=== PATIENT | male | born 1950 | race Caucasian/White ===

== ENCOUNTER → 2016-12-24 | Outpatient (REF) | payer MEDICARE, BC ==
[2016-12-24 21:08] LABS: BASO % 0.2 % (0.0-1.0); EOS % 0.2 % (0.0-3.0); LARGE UNSTAINED CELL # 0.2 K/mm3 (0.0-0.4); LARGE UNSTAINED CELL % 1.4 % (0.0-4.0); LYMPH # 1.9 K/mm3 (1.5-4.5); LYMPH % 12.9 % (24.0-44.0); MEAN CORPUSCULAR HEMOGLOBIN 30.7 pg (27.0-33.0); MEAN CORPUSCULAR HGB CONC 35.2 g/dl (32.0-36.5); MEAN CORPUSCULAR VOLUME 87.2 fl (80.0-96.0); MONO # 0.9 K/mm3 (0.0-0.8); MONO % 6.2 % (0.0-5.0); NEUTROPHILS # 11.6 K/mm3 (1.8-7.7); PLATELET COUNT, AUTOMATED 347 k/mm3 (150-450); RED CELL DISTRIBUTION WIDTH 12.7 % (11.5-14.5); WHITE BLOOD COUNT 14.7 K/mm3 (4.0-10.0)
[2016-12-24 21:19] LABS: ALBUMIN 4.3 GM/DL (3.2-5.2); ALBUMIN/GLOBULIN RATIO 1.3 (1.00-1.93); BILIRUBIN,TOTAL 1.6 MG/DL (0.2-1.0); CALCIUM LEVEL 9.2 MG/DL (8.8-10.2); CREATININE FOR GFR 1.35 MG/DL (0.70-1.30); GLOMERULAR FILTRATION RATE 56.5 (>49); POTASSIUM SERUM 4.2 MEQ/L (3.5-5.1); TOTAL PROTEIN 7.6 GM/DL (6.4-8.2)
== END ==
LOC: M SFHCLERA 16:32
PROVIDERS: ATTEND Physician Assistant
DX: R30.0 Dysuria (principal); R39.198 Other difficulties with micturition
CPT/HCPCS: 80053; 85025; 87086; G0103

== ENCOUNTER → 2017-01-26 | Outpatient (REF) | payer MEDICARE ==
[2017-01-26 11:55] LABS: MEAN CORPUSCULAR HEMOGLOBIN 30.3 pg (27.0-33.0); MEAN CORPUSCULAR HGB CONC 35.4 g/dl (32.0-36.5); MEAN CORPUSCULAR VOLUME 85.6 fl (80.0-96.0); RED CELL DISTRIBUTION WIDTH 12.9 % (11.5-14.5); WHITE BLOOD COUNT 4.7 K/mm3 (4.0-10.0)
[2017-01-26 12:09] LABS: ALBUMIN 3.7 GM/DL (3.2-5.2); ALBUMIN/GLOBULIN RATIO 1.23 (1.00-1.93); ALKALINE PHOSPHATASE 68 U/L (45-117); ALT/SGPT 52 U/L (12-78); ANION GAP 6 MEQ/L (8-16); AST/SGOT 31 U/L (15-37); BILIRUBIN,TOTAL 0.6 MG/DL (0.2-1.0); BLOOD UREA NITROGEN 8 MG/DL (7-18); CALCIUM LEVEL 8.9 MG/DL (8.8-10.2); CARBON DIOXIDE LEVEL 32 MEQ/L (21-32); CHLORIDE LEVEL 104 MEQ/L (98-107); CREATININE FOR GFR 0.78 MG/DL (0.70-1.30); GLOMERULAR FILTRATION RATE > 60.0 (>49); GLUCOSE, FASTING 106 MG/DL (80-110); POTASSIUM SERUM 4.2 MEQ/L (3.5-5.1); SODIUM LEVEL 142 MEQ/L (136-145); TOTAL PROTEIN 6.7 GM/DL (6.4-8.2)
[2017-01-27 14:19] LABS: PSA % FREE 14.8 % (.); PSA FREE 0.93 ng/mL; PSA TOTAL 6.3 ng/mL (0.0-4.0)
== END ==
LOC: M SFHCLERA 08:46
PROVIDERS: ATTEND Family Medicine
DX: R97.20 Elevated prostate specific antigen [PSA] (principal); N17.9 Acute kidney failure, unspecified

== ENCOUNTER → 2017-02-22 | Outpatient (REF) | payer MEDICARE ==
[2017-02-23 14:15] LABS: PSA % FREE 16.1 % (.); PSA FREE 0.82 ng/mL; PSA TOTAL 5.1 ng/mL (0.0-4.0)
== END ==
LOC: M SFHCLERA 08:05
PROVIDERS: ATTEND Family Medicine
DX: R97.20 Elevated prostate specific antigen [PSA] (principal)

== ENCOUNTER → 2017-03-08 | Outpatient (REF) | payer MEDICARE | LOC: M SMT 16:52 | PROVIDERS: ATTEND Nurse Practitioner Family | DX: R97.20 Elevated prostate specific antigen [PSA] (principal) ==

== ENCOUNTER → 2017-03-10 | Outpatient (REF) | payer MEDICARE | LOC: M SMT 12:50 | PROVIDERS: ATTEND Nurse Practitioner Family | DX: R97.20 Elevated prostate specific antigen [PSA] (principal); Z79.899 Other long term (current) drug therapy ==

== ENCOUNTER 2017-05-19 11:47 | Outpatient (CLI) | payer MEDICARE ==
[~2017-05-19] VITALS: Ht 172.7 cm; Wt 90.7 kg
[~2017-05-19 11:47] MED LIST: AMLO10TA2 PO; ASPI1TAB PO; ATOR1TAB19 PO; FLOM5CAP PO; LISI40TAB PO; OMEP20CA3 PO; POTA99TA PO; SAM-400T3 PO; SILD20TA11 PO; VITA200015 PO; VITATAB11 PO
[2017-05-19] MEDS ORDERED: NS 1,000 ML IV SCH (13:30)
[2017-05-19] MEDS ORDERED: PROPOFOL 200 MG/20 ML VIAL As Ordered ONE ×2 (15:04→15:14)
--- NOTE | 2017-05-19 15:26 | ROOR ---
Patient Name: Amish Park Procedure Date: 05/19/2017 2:00 PM Date of : 1950 Age: 66 Room: [facility] Gender: Male Note Status: Finalized Procedure: Colonoscopy Indications: Screening for colorectal malignant neoplasm Providers: Avila LOMELI MD Referring MD: Davis Pedroza MD Requesting Provider: Medicines: Monitored Anesthesia Care Complications: No immediate complications. Procedure: Pre-Anesthesia Assessment: - The heart rate, respiratory rate, oxygen saturations, blood pressure, adequacy of pulmonary ventilation, and response to care were monitored throughout the procedure. The Colonoscope was introduced through the anus and advanced to the cecum, identified by appendiceal orifice and ileocecal valve. The colonoscopy was performed without difficulty. The patient tolerated the procedure well. The quality of the bowel preparation was good. Findings: The perianal and digital rectal examinations were normal. Two sessile polyps were found in the ascending colon. The polyps were 3 to 4 mm in size. These polyps were removed with a cold snare. Resection and retrieval were complete. Two sessile polyps were found in the sigmoid colon. The polyps were 3 to 5 mm in size. These polyps were removed with a cold snare. Resection and retrieval were complete. A localized area of granular mucosa was found in the ascending colon. Biopsies were taken with a cold forceps for histology. Multiple medium-mouthed diverticula were found in the sigmoid colon. Small Internal Hemorrhoids. Impression: - Two 3 to 4 mm polyps in the ascending colon, removed with a cold snare. Resected and retrieved. - Two 3 to 5 mm polyps in the sigmoid colon, removed with a cold snare. Resected and retrieved. - Granularity in the ascending colon/hepatic flexure. Biopsied. - Mild diverticulosis in the sigmoid colon. - Small Internal Hemorrhoids. - The exam was otherwise normal to the cecum. Recommendation: - Repeat colonoscopy in 3 years for surveillance. - Telephone endoscopist for pathology results in 2 weeks. Avila Lomeli MD Avila LOMELI MD 05/19/2017 3:26:08 PM This report has been signed electronically. Number of Addenda: 0 Note Initiated On: 05/19/2017 2:00 PM Estimated Blood Loss: Estimated blood loss: none.
[2017-05-19 15:50] VITALS: BP 114/80
== END 2017-05-19 16:04 | disposition home or self-care (01) ==
LOC: M OPP 11:47
PROVIDERS: ATTEND Internal Medicine Gastroenterology
DX: Z12.11 Encounter for screening for malignant neoplasm of colon (principal); D12.2 Benign neoplasm of ascending colon; D12.5 Benign neoplasm of sigmoid colon; K57.30 Diverticulosis of large intestine without perforation or abscess without bleeding; K64.8 Other hemorrhoids; K63.89 Other specified diseases of intestine; I10 Essential (primary) hypertension; E78.5 Hyperlipidemia, unspecified; R12 Heartburn; R23.3 Spontaneous ecchymoses; N40.1 Benign prostatic hyperplasia with lower urinary tract symptoms; Z88.0 Allergy status to penicillin; Z79.82 Long term (current) use of aspirin; Z79.899 Other long term (current) drug therapy; Z80.8 Family history of malignant neoplasm of other organs or systems

== ENCOUNTER → 2018-06-29 | Outpatient (REF) | payer MEDICARE ==
[2018-06-29 11:33] LABS: BASO % 0.5 % (0.0-1.0); EOS # 0.1 10^3/uL (0.0-0.50); HEMOGLOBIN 16.4 g/dl (13.5-17.5); IMMATURE GRANULOCYTE % 0.7 % (0-3.0); LYMPH # 1.5 10^3/uL (1.5-4.5); LYMPH % 25.3 % (24.0-44.0); MEAN CORPUSCULAR HEMOGLOBIN 30.5 pg (27.0-33.0); MEAN CORPUSCULAR HGB CONC 35.7 g/dl (32.0-36.5); MEAN CORPUSCULAR VOLUME 85.7 fl (80.0-96.0); MONO # 0.4 10^3/uL (0.0-0.8); MONO % 7.3 % (0.0-5.0); NEUTROPHILS # 3.9 10^3/uL (1.8-7.7); NEUTROPHILS % 65.2 % (36.0-66.0); PLATELET COUNT, AUTOMATED 202 10^3/uL (150-450); RED BLOOD COUNT 5.37 10^6/uL (4.30-6.10); RED CELL DISTRIBUTION WIDTH 12.9 % (11.5-14.5); WHITE BLOOD COUNT 5.9 10^3/uL (4.0-10.0)
[2018-06-29 14:15] LABS: ALBUMIN 4.4 GM/DL (3.2-5.2); ALBUMIN/GLOBULIN RATIO 1.33 (1.00-1.93); ALKALINE PHOSPHATASE 66 U/L (45-117); ALT/SGPT 60 U/L (12-78); ANION GAP 10 MEQ/L (8-16); AST/SGOT 42 U/L (7-37); BILIRUBIN,TOTAL 0.9 MG/DL (0.2-1.0); BLOOD UREA NITROGEN 14 MG/DL (7-18); CALCIUM LEVEL 9.5 MG/DL (8.8-10.2); CARBON DIOXIDE LEVEL 27 MEQ/L (21-32); CHLORIDE LEVEL 102 MEQ/L (98-107); CHOLESTEROL LEVEL 158 MG/DL (<200); CHOLESTEROL RISK RATIO 3.291 (<5); CREATININE FOR GFR 0.91 MG/DL (0.70-1.30); GLOMERULAR FILTRATION RATE > 60.0 (>49); GLUCOSE, FASTING 109 MG/DL (70-100); HDL CHOLESTEROL 48 MG/DL (>40); LDL CHOLESTEROL 81 MG/DL (<100); NON-HDL-C 110 MG/DL; POTASSIUM SERUM 4.1 MEQ/L (3.5-5.1); SODIUM LEVEL 139 MEQ/L (136-145); TOTAL PROTEIN 7.7 GM/DL (6.4-8.2); TRIGLYCERIDES LEVEL 144 MG/DL (<150)
[2018-06-29 15:33] LABS: ESTIMATED AVERAGE GLUCOSE 97 MG/DL (60-110)
[2018-06-29 15:44] LABS: MALB URINE SIEMENS 17.5 MG/L
[2018-06-29 16:07] LABS: MAU/CREAT RATIO 87.5 MCG/MG (0.0-30.0)
[2018-07-01 00:08] LABS: PSA % FREE 23.4 % (.); PSA FREE 1.31 ng/mL; PSA TOTAL 5.6 ng/mL (0.0-4.0)
== END ==
LOC: M SFHCLERA 08:23
DX: R97.20 Elevated prostate specific antigen [PSA] (principal); I10 Essential (primary) hypertension; Z79.899 Other long term (current) drug therapy
CPT/HCPCS: 80053

== ENCOUNTER → 2018-07-20 | Outpatient (REF) | payer MEDICARE ==
[2018-07-23 00:06] LABS: PSA % FREE 20.4 % (.); PSA FREE 0.98 ng/mL; PSA TOTAL 4.8 ng/mL (0.0-4.0)
== END ==
LOC: M LABSMT 11:23
DX: R97.20 Elevated prostate specific antigen [PSA] (principal)
CPT/HCPCS: 84154

== ENCOUNTER → 2019-04-06 | Outpatient (REF) | payer MEDICARE ==
[~2019-04-06] MED LIST changes: -AMLO10TA2 PO; +AMLO10TA5 PO; -ASPI1TAB PO; +ASPI81TA26 PO; +FLOM0.4C39 PO; -FLOM5CAP PO; +LISI40TA PO; -LISI40TAB PO
== END ==
LOC: M SFHCLERA 13:37
PROVIDERS: ATTEND Family Medicine
DX: Z11.59 Encounter for screening for other viral diseases (principal)

== ENCOUNTER → 2019-08-16 | Outpatient (REF) | payer MEDICARE ==
[~2019-08-16] MED LIST changes: -OMEP20CA3 PO; +OMEP20CA4 PO
[2019-08-16 17:17] LABS: BLOOD UREA NITROGEN 17 MG/DL (7-18); CALCIUM LEVEL 9.1 MG/DL (8.8-10.2); CARBON DIOXIDE LEVEL 28 MEQ/L (21-32); CHLORIDE LEVEL 103 MEQ/L (98-107); CREATININE FOR GFR 0.86 MG/DL (0.70-1.30); GLOMERULAR FILTRATION RATE > 60.0 (>49); GLUCOSE, FASTING 105 MG/DL (70-100); POTASSIUM SERUM 3.8 MEQ/L (3.5-5.1); SODIUM LEVEL 139 MEQ/L (136-145)
[2019-08-18 14:26] LABS: PSA % FREE 23.1 % (.); PSA FREE 1.27 ng/mL; PSA TOTAL 5.5 ng/mL (0.0-4.0)
== END ==
LOC: M SFHCLERA 09:58
PROVIDERS: ATTEND Family Medicine
DX: M17.12 Unilateral primary osteoarthritis, left knee (principal); R97.20 Elevated prostate specific antigen [PSA]

== ENCOUNTER → 2019-08-16 | Outpatient (CLI) | payer MEDICARE ==
--- NOTE | 2019-08-16 13:05 | REP ---
Left knee five views: There is medial compartment joint space narrowing and early osteophytic formation at the medial joint line compatible with osteoarthritis. The lateral patellofemoral compartments are unremarkable. Mineralization is normal. There is no effusion. There are no calcifications or foreign bodies. Impression: Medial compartment osteoarthritis. Electronically Signed by Nael Prabhakar MD 08/16/2019 12:56 P
--- NOTE | 2019-08-16 13:07 | REP ---
Bilateral knees, single AP view the patient standing. There is joint space narrowing of the right knee lateral compartment. Right knee medial compartment is unremarkable. There is joint space narrowing of the left knee medial compartment. The left knee lateral compartment is unremarkable. Mineralization is normal. No calcifications. No fracture or dislocation. Impression: Early osteoarthritic change of the right knee lateral compartment and left knee medial compartment. Electronically Signed by Nael Prabhakar MD 08/16/2019 12:58 P
== END ==
LOC: M LRY 10:23
PROVIDERS: ATTEND Family Medicine
DX: M17.0 Bilateral primary osteoarthritis of knee (principal); R97.20 Elevated prostate specific antigen [PSA]; Z23 Encounter for immunization
CPT/HCPCS: 73564; 80048; 84154; 90670; G0008; G0463

== ENCOUNTER → 2021-03-17 | Outpatient (CLI) | payer MEDICARE ==
[~2021-03-17] MED LIST changes: -AMLO10TA5 PO; +AMLO1TAB25 PO; -LISI40TA PO; +LISI40TA4 PO; +OMEP1CAP73 PO; -OMEP20CA4 PO
--- NOTE | 2021-03-17 10:18 | REP ---
INDICATION: N. Pain. COMPARISON: None. TECHNIQUE: Two views right hip performed. FINDINGS: There is no acute fracture or dislocation. There is moderately severe joint space narrowing with subchondral sclerosis. There is moderate acetabular spurring. IMPRESSION: Moderately severe arthritic changes. <Electronically signed by Nael Montague > 03/17/21 1330
[2021-03-17 12:28] LABS: BLOOD UREA NITROGEN 19 MG/DL (7-18); CARBON DIOXIDE LEVEL 29 MEQ/L (21-32); CHLORIDE LEVEL 109 MEQ/L (98-107); CHOLESTEROL LEVEL 142 MG/DL (<200); GLOMERULAR FILTRATION RATE > 60.0 (>49); GLUCOSE, FASTING 105 MG/DL (70-100); HDL CHOLESTEROL 50 MG/DL (>40); LDL CHOLESTEROL 70 MG/DL (<100); NON-HDL-C 92 MG/DL; PROSTATIC SPECIFIC AG MONITOR 6.72 NG/ML (< 4.00); SODIUM LEVEL 142 MEQ/L (136-145); TRIGLYCERIDES LEVEL 111 MG/DL (<150)
== END ==
LOC: M WUC 09:03
PROVIDERS: ATTEND Family Medicine
DX: M16.11 Unilateral primary osteoarthritis, right hip (principal); R10.31 Right lower quadrant pain; R97.20 Elevated prostate specific antigen [PSA]; E78.5 Hyperlipidemia, unspecified; I10 Essential (primary) hypertension

== ENCOUNTER → 2021-06-03 | Outpatient (CLI) | payer MEDICARE ==
[~2021-06-03] MED LIST changes: +D31000TA2 PO; +EQL50TAB2 PO; +MAGN400C PO; +POTA20TA6; +TAMS1CAP17; +TRAM50TA2
== END ==
LOC: M LABSMTC 13:29
PROVIDERS: ATTEND Anesthesiology
DX: Z01.812 Encounter for preprocedural laboratory examination (principal); Z20.822 Contact with and (suspected) exposure to COVID-19

== ENCOUNTER 2021-06-05 08:47 | Day surgery (SDC) | payer MEDICARE ==
[~2021-06-05] VITALS: Ht 172.7 cm; Wt 87.3 kg
[~2021-06-05 08:47] MED LIST changes: +LIDOCAINE 2% 100MG/5ML SDV (FOR ANES.) As Ordered ONE; +NS 1,000 ML IV ONE; +propofoL 200 MG/20 ML VIAL As Ordered ONE
--- NOTE | 2021-06-05 10:28 | ROOR ---
Patient Name: Amish Park Procedure Date: 06/05/2021 10:03 AM Date of : 1950 Age: 70 Room: [facility] Gender: Male Note Status: Finalized Procedure: Colonoscopy Indications: High risk colon cancer surveillance: Personal history of colonic polyps, Last colonoscopy: May 2017 Providers: Avila Lomeli MD Referring MD: Stanley Lama DO Requesting Provider: Medicines: Monitored Anesthesia Care Complications: No immediate complications. Procedure: Pre-Anesthesia Assessment: - The heart rate, respiratory rate, oxygen saturations, blood pressure, adequacy of pulmonary ventilation, and response to care were monitored throughout the procedure. The Colonoscope was introduced through the anus and advanced to the cecum, identified by appendiceal orifice and ileocecal valve. The colonoscopy was performed without difficulty. The patient tolerated the procedure well. The quality of the bowel preparation was good. Findings: The perianal and digital rectal examinations were normal. Three sessile polyps were found in the proximal ascending colon and cecum. The polyps were diminutive in size. These polyps were removed with a cold snare. Resection and retrieval were complete. Two sessile polyps were found in the sigmoid colon and descending colon. The polyps were 4 to 5 mm in size. These polyps were removed with a cold snare. Resection and retrieval were complete. Internal hemorrhoids were found during retroflexion. The hemorrhoids were moderate. Multiple medium-mouthed diverticula were found in the sigmoid colon. The exam was otherwise without abnormality on direct and retroflexion views. Impression: - Three diminutive polyps in the proximal ascending colon and in the cecum, removed with a cold snare. Resected and retrieved. - Two 4 to 5 mm polyps in the sigmoid colon and in the descending colon, removed with a cold snare. Resected and retrieved. - Moderate Internal hemorrhoids. - Diverticulosis in the sigmoid colon. - The examination was otherwise normal on direct and retroflexion views. Recommendation: - Await pathology results. - Repeat colonoscopy in 3 years for surveillance. Procedure Code(s): --- Professional --- 51388, Colonoscopy, flexible; with removal of tumor(s), polyp(s), or other lesion(s) by snare technique Diagnosis Code(s): --- Professional --- K57.30, Diverticulosis of large intestine without perforation or abscess without bleeding K64.8, Other hemorrhoids K63.5, Polyp of colon Z86.010, Personal history of colonic polyps CPT copyright 2019 [employer]. All rights reserved. The codes documented in this report are preliminary and upon business office coordinator review may be revised to meet current compliance requirements. Avila Lomeli MD Avila Lomeli MD 06/05/2021 10:27:49 AM Electronically signed by Avila Lomeli MD Number of Addenda: 0 Note Initiated On: 06/05/2021 10:03 AM Estimated Blood Loss: Estimated blood loss: none.
[2021-06-05 10:55] VITALS: BP 133/90
== END 2021-06-05 11:05 | disposition home or self-care (01) ==
LOC: M OPP 08:47
PROVIDERS: ATTEND Internal Medicine Gastroenterology
DX: Z12.11 Encounter for screening for malignant neoplasm of colon (principal); Z86.010 Personal history of colon polyps; Z80.0 Family history of malignant neoplasm of digestive organs; K63.5 Polyp of colon; K57.30 Diverticulosis of large intestine without perforation or abscess without bleeding; K64.8 Other hemorrhoids; K21.9 Gastro-esophageal reflux disease without esophagitis; Z79.891 Long term (current) use of opiate analgesic; Z79.899 Other long term (current) drug therapy; Z88.0 Allergy status to penicillin

== ENCOUNTER 2024-11-05 07:19 | Day surgery (SDC) | payer MEDICARE ==
[~2024-11-05] VITALS: Ht 175.3 cm; Wt 86.3 kg
[~2024-11-05 07:19] MED LIST changes: -D31000TA2 PO; -LIDOCAINE 2% 100MG/5ML SDV (FOR ANES.) As Ordered ONE; -NS 1,000 ML IV ONE; +POTA-151 PO; -POTA20TA6; +VITA100093 PO; -propofoL 200 MG/20 ML VIAL As Ordered ONE
[2024-11-05] MEDS ORDERED: propofoL 200 MG/20 ML VIAL As Ordered ONE (07:50)
[2024-11-05] MEDS ORDERED: LIDOCAINE 2% 100MG/5ML SDV (FOR ANES.) As Ordered ONE (07:50)
[2024-11-05 08:39] VITALS: TEMP 97.6
[2024-11-05 08:59] VITALS: BP 123/79; O2SAT 96
== END 2024-11-05 09:04 | disposition home or self-care (01) ==
LOC: M OPP 07:19
PROVIDERS: ATTEND Internal Medicine Gastroenterology
DX: D12.8 Benign neoplasm of rectum (principal); K63.5 Polyp of colon; K64.8 Other hemorrhoids; K57.30 Diverticulosis of large intestine without perforation or abscess without bleeding; Z86.0100 Personal history of colon polyps, unspecified; Z88.0 Allergy status to penicillin; Z79.899 Other long term (current) drug therapy